=== PATIENT | male | born 1960 | race Two or more races ===

== ENCOUNTER 2022-12-04 07:14 | Day surgery (SDC) | payer MEDICAID ==
[~2022-12-04] VITALS: Ht 167.6 cm; Wt 68.0 kg
[~2022-12-04 07:14] MED LIST: ATOR40TA52 PO; CHOL10009 PO; METO25TA5 PO
[2022-12-04] MEDS ORDERED: HEPARIN SODIUM (PORCINE) 5000 UNITS/ML 1ML VIAL ONE (09:11)
[2022-12-04] MEDS ORDERED: fentaNYL CITRATE 100 MCG/2 ML VL ONE (09:12)
[2022-12-04] MEDS ORDERED: VERAPAMIL 2.5MG/ML INJ 2ML VIAL IV ONE (09:12)
[2022-12-04] MEDS ORDERED: MIDAZOLAM HCL 2MG/2ML 2ml VIAL (1mg/ml) ONE (09:12)
[2022-12-04] MEDS ORDERED: IODIXANOL 320MG/ML 100ML BTL IV ONE (09:18)
[2022-12-04] MEDS ORDERED: LIDOCAINE 2%HCL (LOCAL ANESTH.) INJ 20ML MDV ONE (09:18)
== END 2022-12-04 12:56 | disposition home or self-care (01) ==
LOC: CATH 07:14 → EDSEX 07:14 → CATH 12:56
PROVIDERS: ATTEND Internal Medicine Cardiovascular Disease
DX: I21.4 Non-ST elevation (NSTEMI) myocardial infarction (principal); I10 Essential (primary) hypertension; E78.5 Hyperlipidemia, unspecified; F17.210 Nicotine dependence, cigarettes, uncomplicated; Z79.899 Other long term (current) drug therapy
CPT/HCPCS: 93458; C1725; C1894; J1644; J2250; J3010; Q9967; 99152